=== PATIENT | female | born 1965 | race Two or more races ===

== ENCOUNTER 2018-09-14 07:31 | Outpatient (CLI) | payer OTHER ==
[~2018-09-14 07:31] MED LIST: CALTRATE 600 +1 EACH PO; LOSARTAN POTASS25 MG PO; RELAGESIC TABL1 EACH PO; SYNTHROID75 MCG PO
== END 2018-09-14 07:41 | disposition home or self-care (01) ==
LOC: RX STUDY 07:31
DX: R13.19 Other dysphagia (principal)

== ENCOUNTER 2018-10-29 23:03 | Emergency (ER) | payer OTHER ==
[~2018-10-29] VITALS: Ht 160 cm; Wt 80.7 kg
[2018-10-29] MEDS ORDERED: LYRICA50 MG (23:46)
[2018-10-30] MEDS ORDERED: DUI500 PO (02:10)
== END 2018-10-30 02:23 | disposition home or self-care (01) ==
LOC: ER 23:03
DX: S61.421A Laceration with foreign body of right hand, initial encounter (principal); W25.XXXA Contact with sharp glass, initial encounter; Y93.89 Activity, other specified; Y92.098 Other place in other non-institutional residence as the place of occurrence of the external cause; Y99.8 Other external cause status

== ENCOUNTER 2018-11-06 12:57 | Emergency (ER) | payer OTHER ==
[~2018-11-06] VITALS: Ht 160 cm; Wt 80.7 kg
[~2018-11-06 12:57] MED LIST changes: +DUI500 PO; +LYRICA50 MG
== END 2018-11-06 14:39 | disposition home or self-care (01) ==
LOC: ER 12:57
DX: Z48.02 Encounter for removal of sutures (principal)

== ENCOUNTER 2019-04-02 08:26 | Outpatient (CLI) | payer OTHER | END 2019-04-02 08:41 | disposition home or self-care (01) | LOC: SONOGRAMA 08:26 | DX: N60.11 Diffuse cystic mastopathy of right breast (principal); N60.12 Diffuse cystic mastopathy of left breast; N63.22 Unspecified lump in the left breast, upper inner quadrant ==

== ENCOUNTER 2019-08-03 17:17 | Emergency (ER) | payer OTHER ==
[~2019-08-03] VITALS: Ht 160 cm; Wt 77.6 kg
[2019-08-03] MEDS ORDERED: RELAFEN DS1000 MG (17:30)
== END 2019-08-03 19:49 | disposition home or self-care (01) ==
LOC: ER 17:17
DX: J11.1 Influenza due to unidentified influenza virus with other respiratory manifestations (principal)

== ENCOUNTER 2020-11-03 18:21 | Emergency (ER) | payer OTHER ==
[~2020-11-03] VITALS: Ht 162.6 cm; Wt 76.2 kg
[~2020-11-03 18:21] MED LIST changes: +RELAFEN DS1000 MG
[2020-11-03] MEDS ORDERED: DICLOFENAC POTA50 MG (18:36)
== END 2020-11-03 20:45 | disposition home or self-care (01) ==
LOC: ER 18:21
DX: M62.838 Other muscle spasm (principal); M54.2 Cervicalgia

== ENCOUNTER → 2021-12-03 09:28 | Outpatient (CLI) | payer OTHER ==
[~2021-12-03 09:28] MED LIST changes: +DICLOFENAC POTA50 MG
== END | disposition home or self-care (01) ==
LOC: LAB 09:28
PROVIDERS: ATTEND Specialist
DX: E11.21 Type 2 diabetes mellitus with diabetic nephropathy (principal)

== ENCOUNTER 2021-12-14 23:24 | Emergency (ER) | payer OTHER ==
[~2021-12-14] VITALS: Ht 160 cm; Wt 82.1 kg
[2021-12-14] MEDS ORDERED: METOPROLOL SUCC25 MG PO (23:45)
[2021-12-14] MEDS ORDERED: AMLODIPINE BESYL5 MG PO (23:45)
[2021-12-14] MEDS ORDERED: LOSARTAN-HCTZ1 EACH PO (23:45)
== END 2021-12-15 12:13 | disposition home or self-care (01) ==
LOC: ER 23:24
DX: R00.2 Palpitations (principal); E87.6 Hypokalemia; I10 Essential (primary) hypertension; Z88.8 Allergy status to other drugs, medicaments and biological substances

== ENCOUNTER 2022-01-01 07:44 | Outpatient (CLI) | payer OTHER ==
[~2022-01-01 07:44] MED LIST changes: +AMLODIPINE BESYL5 MG PO; +LOSARTAN-HCTZ1 EACH PO; +METOPROLOL SUCC25 MG PO
== END 2022-01-01 08:03 | disposition home or self-care (01) ==
LOC: MAMO-SONO 07:44
PROVIDERS: ATTEND Specialist
DX: E03.9 Hypothyroidism, unspecified (principal); Z12.31 Encounter for screening mammogram for malignant neoplasm of breast; N63.0 Unspecified lump in unspecified breast; N64.4 Mastodynia; N60.11 Diffuse cystic mastopathy of right breast

== ENCOUNTER → 2022-01-21 08:26 | Outpatient (CLI) | payer OTHER | END | disposition home or self-care (01) | LOC: LAB 08:26 | PROVIDERS: ATTEND Specialist | DX: D64.89 Other specified anemias (principal); E11.21 Type 2 diabetes mellitus with diabetic nephropathy; Z13.220 Encounter for screening for lipoid disorders; E11.69 Type 2 diabetes mellitus with other specified complication; E03.8 Other specified hypothyroidism; N39.9 Disorder of urinary system, unspecified; R07.89 Other chest pain ==

== ENCOUNTER 2022-04-23 09:49 | Outpatient (CLI) | payer OTHER | END 2022-04-23 09:57 | disposition home or self-care (01) | LOC: LAB 09:49 | PROVIDERS: ATTEND Specialist | DX: E11.21 Type 2 diabetes mellitus with diabetic nephropathy (principal); D64.89 Other specified anemias; N39.9 Disorder of urinary system, unspecified; E11.69 Type 2 diabetes mellitus with other specified complication; Z13.220 Encounter for screening for lipoid disorders; E03.8 Other specified hypothyroidism ==

== ENCOUNTER 2022-08-06 09:05 | Outpatient (CLI) | payer OTHER | END 2022-08-06 09:16 | disposition home or self-care (01) | LOC: LAB 09:05 | PROVIDERS: ATTEND Specialist | DX: D64.89 Other specified anemias (principal); Z13.220 Encounter for screening for lipoid disorders; N39.9 Disorder of urinary system, unspecified; M00.80 Arthritis due to other bacteria, unspecified joint; E03.8 Other specified hypothyroidism; E11.21 Type 2 diabetes mellitus with diabetic nephropathy; E11.69 Type 2 diabetes mellitus with other specified complication ==

== ENCOUNTER → 2022-09-30 07:51 | Outpatient (CLI) | payer OTHER | END | disposition home or self-care (01) | LOC: LAB 07:51 | PROVIDERS: ATTEND Internal Medicine | DX: U07.1 COVID-19 (principal); B34.1 Enterovirus infection, unspecified ==

== ENCOUNTER → 2022-10-01 | Outpatient (CLI) | payer OTHER | END | disposition home or self-care (01) | LOC: NUCLEAR 07:00 | PROVIDERS: ATTEND Internal Medicine | DX: I25.118 Atherosclerotic heart disease of native coronary artery with other forms of angina pectoris (principal); R06.00 Dyspnea, unspecified ==

== ENCOUNTER → 2022-10-29 | Outpatient (CLI) | payer OTHER | END | disposition home or self-care (01) | LOC: RAD 10:50 | PROVIDERS: ATTEND Specialist | DX: J45.991 Cough variant asthma (principal) ==

== ENCOUNTER 2022-10-30 08:04 | Outpatient (CLI) | payer OTHER | END 2022-10-30 12:32 | disposition home or self-care (01) | LOC: LAB 08:04 | PROVIDERS: ATTEND Specialist | DX: M00.89 Polyarthritis due to other bacteria (principal); D64.89 Other specified anemias; E11.69 Type 2 diabetes mellitus with other specified complication; E03.8 Other specified hypothyroidism; E11.21 Type 2 diabetes mellitus with diabetic nephropathy; N39.9 Disorder of urinary system, unspecified; Z13.220 Encounter for screening for lipoid disorders ==

== ENCOUNTER 2022-11-05 10:36 | Outpatient (CLI) | payer OTHER | END 2022-11-05 10:38 | disposition home or self-care (01) | LOC: LAB 10:36 | PROVIDERS: ATTEND Specialist | DX: E05.90 Thyrotoxicosis, unspecified without thyrotoxic crisis or storm (principal) ==

== ENCOUNTER 2022-11-05 14:43 | Outpatient (CLI) | payer OTHER | END 2022-11-05 15:03 | disposition home or self-care (01) | LOC: SONOGRAMA 14:43 | PROVIDERS: ATTEND Specialist | DX: E03.9 Hypothyroidism, unspecified (principal) ==

== ENCOUNTER 2022-12-10 08:56 | Outpatient (CLI) | payer OTHER | END 2022-12-10 08:57 | disposition home or self-care (01) | LOC: LAB 08:56 | PROVIDERS: ATTEND Specialist | DX: E03.9 Hypothyroidism, unspecified (principal) ==

== ENCOUNTER → 2023-03-10 08:39 | Outpatient (CLI) | payer OTHER | END | disposition home or self-care (01) | LOC: LAB 08:39 | PROVIDERS: ATTEND Specialist | DX: E03.8 Other specified hypothyroidism (principal); E11.21 Type 2 diabetes mellitus with diabetic nephropathy; E11.69 Type 2 diabetes mellitus with other specified complication; Z13.220 Encounter for screening for lipoid disorders; N39.9 Disorder of urinary system, unspecified; D64.89 Other specified anemias ==

== ENCOUNTER → 2023-03-13 | Outpatient (CLI) | payer OTHER | END | disposition home or self-care (01) | LOC: MAMO-SONO 09:34 | PROVIDERS: ATTEND Obstetrics & Gynecology Maternal & Fetal Medicine | DX: Z12.31 Encounter for screening mammogram for malignant neoplasm of breast (principal); N63.0 Unspecified lump in unspecified breast; N64.4 Mastodynia; N60.11 Diffuse cystic mastopathy of right breast ==

== ENCOUNTER 2024-06-03 08:31 | Outpatient (CLI) | payer OTHER | END 2024-06-03 08:46 | disposition home or self-care (01) | LOC: MAMO-SONO 08:31 | PROVIDERS: ATTEND Obstetrics & Gynecology Maternal & Fetal Medicine | DX: N63.0 Unspecified lump in unspecified breast (principal); N64.4 Mastodynia; N60.11 Diffuse cystic mastopathy of right breast; Z12.31 Encounter for screening mammogram for malignant neoplasm of breast ==

== ENCOUNTER 2024-06-22 08:46 | Outpatient (CLI) | payer OTHER | END 2024-06-22 08:56 | disposition home or self-care (01) | LOC: SONOGRAMA 08:46 | PROVIDERS: ATTEND Specialist | DX: S86.011A Strain of right Achilles tendon, initial encounter (principal); M76.60 Achilles tendinitis, unspecified leg ==

== ENCOUNTER → 2024-12-27 11:51 | Outpatient (CLI) | payer OTHER | END | disposition home or self-care (01) | LOC: LAB 11:51 → EKG 11:51 | PROVIDERS: ATTEND Specialist | DX: Z01.810 Encounter for preprocedural cardiovascular examination (principal) ==

== ENCOUNTER 2025-02-28 08:30 | Outpatient (CLI) | payer OTHER | END 2025-02-28 08:40 | disposition home or self-care (01) | LOC: SONOGRAMA 08:30 | PROVIDERS: ATTEND Specialist | DX: E03.9 Hypothyroidism, unspecified (principal) ==

== ENCOUNTER 2025-06-21 09:05 | Outpatient (CLI) | payer OTHER | END 2025-06-21 09:14 | disposition home or self-care (01) | LOC: MAMO-SONO 09:05 | PROVIDERS: ATTEND Obstetrics & Gynecology Maternal & Fetal Medicine | DX: N63 Unspecified lump in breast (principal); N64.4 Mastodynia; N60.11 Diffuse cystic mastopathy of right breast; Z12.31 Encounter for screening mammogram for malignant neoplasm of breast ==